=== PATIENT | female | born 1980 | race Caucasian/White ===

== ENCOUNTER 2019-12-29 18:41 | Inpatient (IN) | payer OTHER ==
[~2019-12-29] VITALS: Ht 167.6 cm; Wt 81.7 kg
[~2019-12-29 18:41] MED LIST: AMBIENCR PO; AMITRIPTYLINE H50 M2; ARAVA10 MG; CELEXA40 MG PO; CIPROFLOXACIN500 M1 PO; CLEOCIN HCL150 MG PO; EFFEXOR37.5 MG; ELAVIL PO; ENBREL50 MG/1 M1 SQ; FOLIC ACID 1 MG1 MG; HALCION0.25 MG PO; HYDROCODON-ACE1 EAC7 PO; HYDROXYCHLOROQ200 M1 PO; IBUPROFEN 600600 M1 PO; IBUPROFEN 800800 M1 PO; IMITREX4 MG/0.51 SUBQ; IMITREX5 MG NS; LAMICTAL 25 MG25 MG PO; LAMICTAL XR200 MG PO; LATUDA120 MG PO; LEVAQUIN 500 M500 MG PO; LOMOTIL TABLET1 EACH PO; METHOTREXATE; NORCO 5-325 TA1 EACH PO; NUVARING VAGIN1 EACH VG; OXYCODONE HCL 55 MG PO; OXYCODONE-APAP1 EAC6 PO; OXYCONTIN10 M1 PO; OXYCONTIN40 MG PO; PHENERGAN 25 MG25 M1 PO; PREDNISONE 20 M20 MG PO; RELAFEN750 MG PO; SUBOXONE 2 MG-1 EACH SL; TESSALON PERLE100 M1 PO; TREXALL15 MG PO; VENTOLIN HFA 1818 GM INH; WELLBUTRIN XL300 MG PO; XANAX 0.5 MG0.5 MG PO; ZOFRAN ODT4 MG PO; ZOFRAN4 MG PO; ZOLOFT 50 MG TA50 M1 PO; ZPAK PO
[2019-12-29 18:55] VITALS: BP 151/79
[2019-12-29] MEDS ORDERED: PROZAC40 MG PO (19:06)
[2019-12-29 19:23] LABS: ABSOLUTE EOSINOPHILS 0.6 thou/uL (0.0-0.7); ABSOLUTE LYMPHOCYTES 1.5 thou/uL (0.8-5.3); ABSOLUTE MONOCYTES 0.4 thou/uL (0.0-1.2); ABSOLUTE NEUTROPHILS 3.7 thou/uL (1.6-8.1); BASOPHILS 0.5 %; EOSINOPHILS 9.3 %; HEMATOCRIT 27.6 % (37.0-47.0); HEMOGLOBIN 9.4 gm/dL (12.0-15.0); LYMPHOCYTES 24.3 %; MCH 31.1 pg (26.0-34.0); MCHC 34.2 g/dL (28.0-37.0); MPV 9.9 fl. (7.2-11.1); NUCLEATED RBCS 0 /100WBC; PLATELET COUNT* 125 thou/uL (150-400); POLYS 59.9 %; RBC 3.04 mil/uL (4.20-5.00); RDW-CV 14.7 % (10.5-14.5); WBC 6.2 thou/uL (4.0-11.0)
[2019-12-29 19:33] LABS: ANION GAP 7 mmol/L (7-16); BUN 26 mg/dL (7-18); CALCIUM 8.5 mg/dL (8.5-10.1); CHLORIDE 101 mmol/L (98-107); CO2 26 mmol/L (21-32); CREATININE 0.9 mg/dL (0.6-1.3); GLUCOSE 137 mg/dL (70-99); POTASSIUM 4.2 mmol/L (3.5-5.1); SODIUM 134 mmol/L (136-145)
[2019-12-29 19:34] LABS: INR 1.2; PROTIME 12.6 Seconds (9.20-11.50)
[2019-12-29 19:46] LABS: ALBUMIN 3.5 g/dL (3.4-5.0); ALKALINE PHOSPHATASE 97 U/L (46-116); LIPASE 67 U/L (73-393); MAGNESIUM 1.9 mg/dL (1.8-2.4); NT-PRO BRAIN NAT PEPTIDE 2766 pg/mL (<300); SGOT 223 U/L (15-37); SGPT 109 U/L (30-65); TOTAL BILIRUBIN 0.3 mg/dL (<0.1-1.0); TOTAL PROTEIN 7.8 g/dL (6.4-8.2)
[2019-12-29 19:54] LABS: URINE BILIRUBIN NEGATIVE (Negative); URINE BLOOD 2+ (Negative); URINE CLARITY CLEAR; URINE COLOR YELLOW; URINE GLUCOSE-RANDOM NEGATIVE (Negative); URINE KETONES NEGATIVE (Negative); URINE LEUKOCYTES-REFLEX NEGATIVE (Negative); URINE NITRITE-REFLEX NEGATIVE (Negative); URINE PROTEIN 2+ (Negative); URINE SPECIFIC GRAVITY >= 1.030 (1.005-1.030); URINE UROBILINOGEN 0.2 E.U./dl (0.2-1.0)
[2019-12-29 20:02] LABS: HYALINE CASTS >10 Many /LPF (None Seen); MUCUS 0-3 Light strn/LPF (None Seen); SQUAMOUS >10 Many /LPF (0-3)
[2019-12-29 20:03] LABS: CRYSTALS None Seen /LPF (None Seen); URINE RBC 0-2 Rare /HPF (0-2); URINE WBC-REFLEX 0-5 Rare /HPF (0-5)
[2019-12-29 20:04] LABS: BACTERIA-REFLEX 1-9 Few /HPF (None Seen)
[2019-12-29 20:34] LABS: AMP/METHAMP Negative (Negative); BARBITURATES Negative (Negative); BENZODIAZEPINES Negative (Negative); COCAINE Negative (Negative); METHADONE Negative (Negative); OPIATES POSITIVE (Negative); PCP Negative (Negative); THC POSITIVE (Negative)
[2019-12-29 23:00] VITALS: BP 136/92
[2019-12-29 23:10] VITALS: BP 142/70
[2019-12-30] MEDS ORDERED: IMITREX 25 MG T25 M1 PO (00:14)
[2019-12-30] MEDS ORDERED: DESYREL150 MG PO (00:15)
[2019-12-30] MEDS ORDERED: DIPHENHIST50 MG PO (00:16)
[2019-12-30] MEDS ORDERED: MELATONIN10 M3 PO (00:17)
[2019-12-30] MEDS ORDERED: UNISOM50 MG PO (00:18)
[2019-12-30] MEDS ORDERED: PAIN RELIEF500 M1 PO (00:20)
[2019-12-30] MEDS ORDERED: ZYRTEC10 M5 PO (00:21)
[2019-12-30] MEDS ORDERED: ZANAFLEX4 M1 PO (01:16)
[2019-12-30 03:16] VITALS: BP 125/79
[2019-12-30 07:45] VITALS: BP 128/83
--- NOTE | 2019-12-30 10:19 | EKG ---
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[place] : 1980 Requested By: Cari Solis Order Number: [id number] MD: Sachin Ruffin Measurements Intervals [place] Rate: 98 P: 75 WY: 137 QRS: 37 QRSD: 96 T: -38 QT: 423 QTc: 541 Interpretive Statements Sinus rhythm Nonspecific T abnormalities, diffuse leads Prolonged QT interval Compared to ECG 04/19/2007 20:38:46 T-wave abnormality now present Prolonged QT interval now present Electronically Signed On 12-30-2019 10:17:54 CDT by Sachin Ruffin [email or web address] <ELECTRONICALLY SIGNED> By: Sachin Ruffin MD, [facility] 12/30/19 1017 24 24 Sachin Ruffin MD, [facility] /EPI
--- NOTE | 2019-12-30 10:20 | EKG ---
[place] [address] ELECTROCARDIOGRAM REPORT Name: OSCAR YBARRA Room: [address] ADM IN .R.#: [id number] Admission: 12/29/19 Attend Phys: Ambika valentin Sa Discharge: Date of : 80 Date of Service: 12/29/19 2156 Report #: [id number] THIS REPORT FOR: //name// 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 2156 2156 Sachin Ruffin MD, [facility] /EPI
== END 2019-12-30 13:30 | disposition left against medical advice (07) | DRG 203 ==
LOC: M.ERS 18:41 → M.ORTHSURG 21:10 → M.TBA-ER 21:10 → M.ORTHSURG 23:30
PROVIDERS: Emergency Medicine; Nurse Practitioner Family; ADMIT Family Medicine
DX: J45.901 Unspecified asthma with (acute) exacerbation (principal); M19.90 Unspecified osteoarthritis, unspecified site; F32.9 Major depressive disorder, single episode, unspecified; E78.5 Hyperlipidemia, unspecified; I10 Essential (primary) hypertension; G43.909 Migraine, unspecified, not intractable, without status migrainosus; F41.9 Anxiety disorder, unspecified; D69.6 Thrombocytopenia, unspecified; D64.9 Anemia, unspecified; M06.9 Rheumatoid arthritis, unspecified; F17.210 Nicotine dependence, cigarettes, uncomplicated; Z53.29 Procedure and treatment not carried out because of patient's decision for other reasons; Z88.0 Allergy status to penicillin; Z88.2 Allergy status to sulfonamides; Z88.8 Allergy status to other drugs, medicaments and biological substances; Z20.828 Contact with and (suspected) exposure to other viral communicable diseases; J98.8 Other specified respiratory disorders

== ENCOUNTER 2020-06-10 18:08 | Emergency (ER) | payer OTHER ==
[~2020-06-10] VITALS: Ht 165.1 cm; Wt 74.8 kg
[~2020-06-10 18:08] MED LIST changes: +DESYREL150 MG PO; +DIPHENHIST50 MG PO; +IMITREX 25 MG T25 M1 PO; +MELATONIN10 M3 PO; +PAIN RELIEF500 M1 PO; +PROZAC40 MG PO; +UNISOM50 MG PO; +ZANAFLEX4 M1 PO; +ZYRTEC10 M5 PO
[2020-06-10] MEDS ORDERED: NORCO 5-325 TA1 EAC2 PO (19:03)
[2020-06-10] MEDS ORDERED: CLEOCIN HCL150 MG PO (19:03)
[2020-06-10 19:16] VITALS: BP 149/95
== END 2020-06-10 19:16 | disposition home or self-care (01) ==
LOC: M.ERS 18:08
DX: K04.7 Periapical abscess without sinus (principal); K01.1 Impacted teeth; J45.909 Unspecified asthma, uncomplicated; M19.90 Unspecified osteoarthritis, unspecified site; E78.5 Hyperlipidemia, unspecified; M06.9 Rheumatoid arthritis, unspecified; I10 Essential (primary) hypertension; G43.909 Migraine, unspecified, not intractable, without status migrainosus; M79.7 Fibromyalgia; Z88.1 Allergy status to other antibiotic agents; Z88.0 Allergy status to penicillin; Z88.2 Allergy status to sulfonamides; Z88.8 Allergy status to other drugs, medicaments and biological substances

== ENCOUNTER 2021-05-24 10:40 | Emergency (ER) | payer OTHER ==
[~2021-05-24] VITALS: Ht 167.6 cm; Wt 81.7 kg
[~2021-05-24 10:40] MED LIST changes: +NORCO 5-325 TA1 EAC2 PO
[2021-05-24] MEDS ORDERED: ABILIFY10 MG PO (10:56)
[2021-05-24] MEDS ORDERED: HYDROXYZINE HCL25 M2 PO (10:57)
[2021-05-24] MEDS ORDERED: APAP W/CODEINE1 TA2 PO (11:03)
[2021-05-24] MEDS ORDERED: PROAIR HFA8.5 GM INH (11:03)
[2021-05-24] MEDS ORDERED: TESSALON PERLE100 MG PO (11:03)
[2021-05-24 11:41] VITALS: BP 132/88
--- NOTE | 2021-05-24 14:59 | EKG ---
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1980 Requested By: Magalie Mehta Order Number: [id number] MD: Sachin Ruffin Measurements Intervals [place] Rate: 73 P: 21 ID: 129 QRS: 49 QRSD: 96 T: 44 QT: 424 QTc: 468 Interpretive Statements Sinus rhythm Compared to ECG 12/29/2019 21:56:51 T-wave abnormality no longer present Prolonged QT interval no longer present Electronically Signed On 05-24-2021 14:59:19 CDT by Sachin Ruffin [email or web address] <ELECTRONICALLY SIGNED> By: Sachin Ruffin MD, [facility] 05/24/21 1459 1056 1056 Sachin Ruffin MD, [facility] /EPI
== END 2021-05-24 11:42 | disposition home or self-care (01) ==
LOC: M.ERS 10:40
DX: J20.9 Acute bronchitis, unspecified (principal); Z20.822 Contact with and (suspected) exposure to COVID-19; J45.909 Unspecified asthma, uncomplicated; M19.90 Unspecified osteoarthritis, unspecified site; I10 Essential (primary) hypertension; M79.7 Fibromyalgia; F17.210 Nicotine dependence, cigarettes, uncomplicated; Z88.0 Allergy status to penicillin; Z88.1 Allergy status to other antibiotic agents

== ENCOUNTER 2021-09-17 18:26 | Inpatient (IN) | payer OTHER ==
[~2021-09-17] VITALS: Ht 167.6 cm; Wt 79.4 kg
[~2021-09-17 18:26] MED LIST changes: +ABILIFY10 MG PO; +APAP W/CODEINE1 TA2 PO; +HYDROXYZINE HCL25 M2 PO; +PROAIR HFA8.5 GM INH; +TESSALON PERLE100 MG PO
[2021-09-17 18:46] VITALS: BP 137/90
[2021-09-17 19:56] LABS: INFLUENZA A ANTIGEN Negative (Negative); INFLUENZA B ANTIGEN Negative (Negative)
[2021-09-17 19:57] LABS: URINE BILIRUBIN NEGATIVE (Negative); URINE BLOOD NEGATIVE (Negative); URINE CLARITY CLEAR; URINE COLOR YELLOW; URINE GLUCOSE-RANDOM NEGATIVE (Negative); URINE KETONES NEGATIVE (Negative); URINE LEUKOCYTES-REFLEX NEGATIVE (Negative); URINE NITRITE-REFLEX NEGATIVE (Negative); URINE PROTEIN NEGATIVE (Negative); URINE SPECIFIC GRAVITY >= 1.030 (1.005-1.030); URINE UROBILINOGEN 0.2 E.U./dl (0.2-1.0)
[2021-09-17 20:03] LABS: ABSOLUTE BASOPHILS 0.1 thou/uL (0.0-0.2); ABSOLUTE EOSINOPHILS 0.5 thou/uL (0.0-0.7); ABSOLUTE LYMPHOCYTES 1.7 thou/uL (0.8-5.3); ABSOLUTE MONOCYTES 0.6 thou/uL (0.0-1.2); ABSOLUTE NEUTROPHILS 9.4 thou/uL (1.6-8.1); BASOPHILS 0.6 %; EOSINOPHILS 4.1 %; HEMATOCRIT 38.6 % (37.0-47.0); HEMOGLOBIN 12.5 gm/dL (12.0-15.0); LYMPHOCYTES 13.9 %; MCH 25.6 pg (26.0-34.0); MCHC 32.3 g/dL (28.0-37.0); MCV 79.3 fL (80.0-100.0); MPV 7.3 fl. (7.2-11.1); NUCLEATED RBCS 0 /100WBC; PLATELET COUNT* 292 thou/uL (150-400); POLYS 76.4 %; RBC 4.87 mil/uL (4.20-5.00); RDW-CV 17.4 % (10.5-14.5); WBC 12.3 thou/uL (4.0-11.0)
[2021-09-17 20:17] LABS: CALCIUM 9.3 mg/dL (8.5-10.1); CREATININE 0.7 mg/dL (0.6-1.3); POTASSIUM 4.2 mmol/L (3.5-5.1)
[2021-09-17 20:29] LABS: ALBUMIN 3.7 g/dL (3.4-5.0); TOTAL BILIRUBIN 0.3 mg/dL (<0.1-1.0); TOTAL PROTEIN 8.6 g/dL (6.4-8.2)
[2021-09-18] VITALS (7 sets, daily range): BP systolic 99–122; BP diastolic 58–71
--- NOTE | 2021-09-18 09:47 | EKG ---
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
--- NOTE | 2021-09-18 11:25 | NUR ---
RT CALLED FOR PRN BREATHING TREATMENT.
[2021-09-18] MEDS ORDERED: ABILIFY15 MG PO (23:12)
[2021-09-19] VITALS (7 sets, daily range): BP systolic 111–133; BP diastolic 62–77
--- NOTE | 2021-09-19 05:18 | NUR ---
PATIENT SLEPT WELL AFTER ADMISSION COMPLETED. PT UP TO BATHROOM WITH STEADY GAIT. PT WITH ONE LITER OF NS INFUSED AT BEGINNING OF SHIFT. PT REQUESTED PAIN MEDICATION AND RECEIVED TORADOL IV. C/O LT MUSCULAR/LUNG PAIN. PT ABLE TO RETURN TO SLEEP AFTERWARDS. PT ON O2 @ 2LITERS PER NASAL CANNULA. PT WITH COURSE, WHEEZY, DIMINISHED LUNG SOUNDS. FREQUENTLY USED ITEMS AND CALL LIGHT WITHIN REACH. SIDERAILS UPX2. WILL CONTINUE TO MONITOR.
[2021-09-19] MEDS ORDERED: VITAMIN D325 MC2 PO (13:22)
[2021-09-19] MEDS ORDERED: ADVAIR 250-501 EACH INH (13:22)
[2021-09-19] MEDS ORDERED: PREDNISONE 10 M10 M1 PO (13:22)
--- NOTE | 2021-09-19 16:42 | NUR ---
CM ASSESSMENT: PT A&O, INDEPENDENT WITH ADL'S AND ACTIVE. PT USES 0 DME. PT INFOMRS THAT SHE IS UNINSURED. PT HAS COMPLETED MED ASSIST ASSESSMENT FOR MEDICAID. PT WILL LIKELY NEED ASSISTANCE WITH HOME 02 AND MEDICATIONS AT D/C. PT CURRENTLY ON 2L-3L O2 AND MAY NEED HOME O2 AT D/C PENDING REST AND EXERCISE TESTING. CM WILL REMAIN AVAILABLE TO ASSIST AND FOLLOW NEEDED.
[2021-09-20] VITALS: BP 133/71
[2021-09-20 04:00] VITALS: BP 127/78
--- NOTE | 2021-09-20 05:00 | NUR ---
PATIENT HAS SLEPT WELL THROUGHOUT MOST OF THE NIGHT. VSS ON 1L 02 VIA NASAL CANNULA. MEDICATIONS GIVEN ORDERED AND CHARTED. IV IN LEFT HAND-SL. PATIENT INSTRUCTED TO USE CALL LIGHT WHEN NEEDING ASSISTANCE. HOURLY ROUNDS MADE. WILL CONTINUE WITH PLAN OF CARE AND NURSING TO MONITOR.
[2021-09-20 08:00] VITALS: BP 127/93
[2021-09-20 16:05] VITALS: BP 138/84
[2021-09-20 19:45] LABS: HEMATOCRIT 36.7 % (37.0-47.0); HEMOGLOBIN 11.5 gm/dL (12.0-15.0); MCH 25.3 pg (26.0-34.0); MCHC 31.4 g/dL (28.0-37.0); MCV 80.6 fL (80.0-100.0); MPV 7.4 fl. (7.2-11.1); NUCLEATED RBCS 0 /100WBC; PLATELET COUNT* 283 thou/uL (150-400); RBC 4.56 mil/uL (4.20-5.00); WBC 16.1 thou/uL (4.0-11.0)
[2021-09-20 19:57] LABS: ALBUMIN 3.2 g/dL (3.4-5.0); CALCIUM 8.7 mg/dL (8.5-10.1); CREATININE 0.8 mg/dL (0.6-1.3); POTASSIUM 3.9 mmol/L (3.5-5.1); TOTAL BILIRUBIN 0.1 mg/dL (<0.1-1.0); TOTAL PROTEIN 7.7 g/dL (6.4-8.2)
[2021-09-20 20:12] LABS: ABSOLUTE LYMPHOCYTES 0.6 thou/uL (0.8-5.3); ABSOLUTE MONOCYTES 0.3 thou/uL (0.0-1.2); ABSOLUTE NEUTROPHILS 15.1 thou/uL (1.6-8.1); PLATELET ESTIMATE ADEQUATE
[2021-09-20 21:30] VITALS: BP 158/97
[2021-09-21] VITALS: BP 135/78
[2021-09-21 08:00] VITALS: BP 137/87
--- NOTE | 2021-09-21 08:03 | NUR ---
PATIENT HAS SLEPT OFF AND ON DURING THE NIGHT. VSS ON RA. MEDICATIONS GIVEN ORDERED AND CHARTED. PATIENT STILL HAS NON-PRODUCTIVE COUGH AT TIMES AND HAS C/O LEFT SIDED FLANK PAIN. PATIENT UP AD-KENDALL AND STEADY ON FEET. IV IN LEFT HAND-SL. PATIENT INSTRUCTED TO CALL NURSE WHEN NEEDING ASSISTANCE. HOURLY ROUNDS MADE. WILL CONTINUE WITH PLAN OF CARE AND NURSING TO MONITOR.
--- NOTE | 2021-09-21 14:03 | NUR ---
CM INFORMED BY RN OF PHYSICIANS PLAN FOR THE PT TO D/C HOME TODAY WITH SELF-CARE. PT IS CURRENTLY UNINSURED. PT REQUEST ASSISTANCE WITH COST OF HER MEDS. CM INFORMED THE RN IN-CHARGE OF THE PT THAT CM IS ABLE TO ASSIST WITH THIS, BUT HER MEDICATIONS MUST BE CALLED IN OR SENT OVER TO [facility]. RN TO INFORM PHYSICIAN. NO OTHER CM D/C PLANNING NEEDS ANTICIPATED. CM PROVIDED PT COMMUNITY RESOURCE PACKET, [facility] INFO FOR F/U APPT, AND [email or web address] PLAN DWAINE AND INFORMED HER OF THE PROCESS OF COMPLETING THIS. CM WILL REMAIN AVAILABLE TO ASSIST AND FOLLOW NEEDED.
[2021-09-21 14:07] VITALS: BP 137/87
[2021-09-21 14:17] VITALS: BP 137/87
--- NOTE | 2021-09-21 15:24 | NUR ---
PT A&OX4. PT RECEIVED ALL DISCHARGE PAPER WORK AND VERBALIZED UNDERSTANDING OF DISCHARGE INSTRUCTIONS. PT HAS ALL BELONGINGS SHE WAS ADMITTED WITH. PT WHEELED OFF UNIT AT 1515.
== END 2021-09-21 15:39 | disposition home or self-care (01) | DRG 189 ==
LOC: M.ERS 18:26 → M.TBA-ER 23:42 → M.2W 09-18 22:20
PROVIDERS: Emergency Medicine; Nurse Practitioner Family; ADMIT Internal Medicine; ATTEND Internal Medicine
DX: J96.01 Acute respiratory failure with hypoxia (principal); J44.1 Chronic obstructive pulmonary disease with (acute) exacerbation; J45.901 Unspecified asthma with (acute) exacerbation; Z20.822 Contact with and (suspected) exposure to COVID-19; Z88.0 Allergy status to penicillin; Z88.8 Allergy status to other drugs, medicaments and biological substances; F17.210 Nicotine dependence, cigarettes, uncomplicated; G43.909 Migraine, unspecified, not intractable, without status migrainosus; I10 Essential (primary) hypertension; F31.9 Bipolar disorder, unspecified; F41.9 Anxiety disorder, unspecified